=== PATIENT | male | born 1950 | race Caucasian/White ===

== ENCOUNTER → 2018-07-11 | Outpatient (CLI) | payer MEDICARE, MEDICAID ==
[2018-07-11 07:20] LABS: HCT 49.8 % (39.0-53.0); MCH 31.5 pg (25.0-35.0); MCHC 32.1 g/dL (31.0-37.0); MCV 98.4 fL (80.0-100.0); Platelet Count 204 k/uL (150-450); RBC 5.06 m/uL (4.30-5.90); RDW 13.3 % (11.5-15.5); WBC 5.9 k/uL (3.8-10.6)
[2018-07-11 07:21] LABS: Appearance,Urine Clear (Clear); Bilirubin,Urine Negative (Negative); Blood,Urine Negative (Negative); Color,Urine Yellow; Glucose,Urine (UA) Negative (Negative); Ketones,Urine Negative (Negative); Leukocyte Esterase,Urine Small (Negative); Mucus,Urine Few /hpf; Nitrite,Urine Negative (Negative); PH, Urine 5.5 (5.0-8.0); Protein,Urine Negative (Negative); RBC,Urine 1 /hpf (0-5); Specific Gravity,Urine 1.016 (1.001-1.035); Urobilinogen,Urine <2.0 mg/dL (<2.0); WBC,Urine 5 /hpf (0-5)
[2018-07-11 12:26] LABS: Albumin 4.6 g/dL (3.80-4.90); Albumin/Globulin Ratio 2.19 (1.20-2.10); Anion Gap 6.9 mmol/L (4.00-12.00); Calcium 9.7 mg/dL (8.7-10.3); Carbon Dioxide 28.1 mmol/L (21.6-31.8); Globulin 2.1 g/dL (2.1-3.7); Potassium 5.1 mmol/L (3.5-5.5); Total Bilirubin 0.8 mg/dL (0.3-1.2); Total Protein 6.7 g/dL (6.2-8.2)
== END | disposition home or self-care (01) ==
LOC: LABWHC1 06:40
PROVIDERS: ATTEND Family Medicine
DX: Z00.00 Encounter for general adult medical examination without abnormal findings (principal)
CPT/HCPCS: 36415; 80053; 80061; 81001; 84153; 85027

== ENCOUNTER → 2018-08-11 | Outpatient (CLI) | payer MEDICAID, MEDICARE | LOC: LABWHC1 07:04 | PROVIDERS: ATTEND Family Medicine | DX: R97.20 Elevated prostate specific antigen [PSA] (principal) | CPT/HCPCS: 36415; 84153; 84154 ==

== ENCOUNTER → 2018-09-22 | Outpatient (CLI) | payer MEDICAID, MEDICARE ==
[2018-09-22 10:56] LABS: Basophils # (A) 0.1 k/uL (0-0.2); Basophils % (A) 1 %; Eosinophils % (A) 1 %; HCT 46.6 % (39.0-53.0); HGB 15.3 gm/dL (13.0-17.5); Lymphocytes % (A) 38 %; MCH 31.9 pg (25.0-35.0); MCHC 32.8 g/dL (31.0-37.0); Mean Platelet Volume 6.7; Monocytes # (A) 0.4 k/uL (0-1.0); Monocytes % (A) 7 %; Neutrophils # (A) 2.6 k/uL (1.3-7.7); Neutrophils % (A) 50 %; Platelet Count 197 k/uL (150-450); RDW 13.1 % (11.5-15.5); WBC 5.2 k/uL (3.8-10.6)
[2018-09-22 11:56] LABS: ALT 32 U/L (21-72); AST 28 U/L (17-59); Albumin 3.9 g/dL (3.5-5.0); Albumin/Globulin Ratio 1.2; Alkaline Phosphatase 75 U/L (38-126); Anion Gap 8 mmol/L; Blood Urea Nitrogen 15 mg/dL (9-20); Calcium 9.2 mg/dL (8.4-10.2); Carbon Dioxide 30 mmol/L (22-30); Chloride 105 mmol/L (98-107); Globulin 3.2 g/dL; Glucose 81 mg/dL (74-99); Potassium 4.3 mmol/L (3.5-5.1); Sodium 143 mmol/L (137-145); Total Bilirubin 0.5 mg/dL (0.2-1.3); Total Protein 7.1 g/dL (6.3-8.2)
== END | disposition home or self-care (01) ==
LOC: LABWHC1 10:13
PROVIDERS: ATTEND Physician Assistant
DX: R53.83 Other fatigue (principal); R19.7 Diarrhea, unspecified
CPT/HCPCS: 36415; 80053; 85025

== ENCOUNTER → 2018-11-18 | Outpatient (CLI) | payer MEDICAID, MEDICARE | LOC: LABWHC1 07:22 | PROVIDERS: ATTEND Urology | DX: R97.20 Elevated prostate specific antigen [PSA] (principal) | CPT/HCPCS: 36415; 84153 ==

== ENCOUNTER → 2018-12-30 | Outpatient (CLI) | payer MEDICAID, MEDICARE | END | disposition home or self-care (01) | LOC: LABWHC1 09:10 | PROVIDERS: ATTEND Urology | DX: R97.20 Elevated prostate specific antigen [PSA] (principal) | CPT/HCPCS: 36415; 84153 ==

== ENCOUNTER → 2019-07-15 | Outpatient (CLI) | payer MEDICAID, MEDICARE ==
[2019-07-15 07:36] LABS: HCT 45.8 % (39.0-53.0); HGB 15.5 gm/dL (13.0-17.5); MCH 33.2 pg (25.0-35.0); MCHC 33.9 g/dL (31.0-37.0); MCV 97.9 fL (80.0-100.0); Mean Platelet Volume 7.3; Platelet Count 230 k/uL (150-450); RBC 4.68 m/uL (4.30-5.90); RDW 12.5 % (11.5-15.5); WBC 5.1 k/uL (3.8-10.6)
[2019-07-15 13:18] LABS: African American GFR (CKD) 79.5 (60.0-200.0); Albumin 4.4 g/dL (3.80-4.90); Albumin/Globulin Ratio 2.2 (1.60-3.17); Anion Gap 6.6 mmol/L (4.00-12.00); BUN/Creat Ratio 17.27 Ratio (12.00-20.00); Calcium 9.2 mg/dL (8.7-10.3); Carbon Dioxide 29.4 mmol/L (21.6-31.8); Chol/HDL Ratio 2.67; LDL Cholesterol,Calculated 94.2 mg/dL (0.0-131.0); Non-African American GFR(CKD) 68.6 (60.0-200.0); Total Bilirubin 0.5 mg/dL (0.3-1.2); Total Protein 6.4 g/dL (6.2-8.2); VLDL Calculation 10.8 mg/dL (5.00-40.00)
== END | disposition home or self-care (01) ==
LOC: LABWHC1 06:36
PROVIDERS: ATTEND Family Medicine
DX: Z00.00 Encounter for general adult medical examination without abnormal findings (principal)
CPT/HCPCS: 36415; 80053; 80061; 84153; 85027

== ENCOUNTER → 2019-10-13 | Outpatient (CLI) | payer MEDICARE ==
--- NOTE | 2019-10-13 15:08 | NM ---
EXAMINATION TYPE: NM bone scan whole body DATE OF EXAM: 10/13/2019 COMPARISON: Plain film 07/27/2019 HISTORY: Prostate cancer Delayed whole-body scanning was performed following the injection of 20.3 mCi Tc 99m MDP. Images acq uired 3 hours post injection. 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 There is uptake seen within the lumbar spine which is likely due to degenerative disc change. Uptake within the shoulders and sternoclavicular joints, left knee, elbows felt likely to be degenerative. S oft tissue uptake is normal. There is uptake present within the right hip at the level of the acetabulum as well as foci of uptake at the level of the sacral ala or near the lumbosacral junction bilaterally. IMPRESSION: Predominant findings thought likely to be degenerative however some indeterminate uptake present with in the pelvis is noted. Consider pelvic MRI for additional evaluation.
== END | disposition home or self-care (01) ==
LOC: RADNMMAIN 09:48
PROVIDERS: ATTEND Urology
DX: C61 Malignant neoplasm of prostate (principal)
CPT/HCPCS: 78306; A9503

== ENCOUNTER → 2019-10-20 | Outpatient (CLI) | payer MEDICARE ==
--- NOTE | 2019-10-21 08:50 | MR ---
EXAMINATION TYPE: MR Prostate wo/w con DATE OF EXAM: 10/20/2019 COMPARISON: None. IMAGE QUALITY: Suboptimal but repeat not required. INDICATION: Prostate ca, PSA 7.0 on 09-02-19 PSA: 7.0 ng/ml on September 02, 2019 and 6.9 on August 11, 2018. Recent Biopsy and Date: Pathology Report (If Applicable): Left base adenocarcinoma recent score 3+3 = 6, 5% tumor, 1 mm size. Left apex adenocarcinoma [place] score 3+4 = 7, 10%, tumor size 1.9 mm. TECHNIQUE: Examination was performed using a 3T MRI without an endorectal coil. Multiparametric imaging was perf ormed with T2 mutliplanar sequences, axial diffusion weighted imaging and dynamic contrast enhanced i maging, utilizing 7.5 mL intravenous Gadavist gadolinium contrast. FINDINGS: There is distortion especially on the higher B value diffusion weighted images and ADC madelin ing provided. There is no clinically significant cancer identified. PROSTATE VOLUME: 4.4 cm SI x 3.7 cm AP x 5.0 cm LR Vol= 42.6 cc PSA DENSITY: 5.112 ng/ml/cc Site 1: Assessment Category:2 Roughly 10 x 5 mm curvilinear area of indistinct hypointensity on ADC mapping image 164 for reference without increased signal on diffusion-weighted images. Location(s):left apex ; Central transitional zone is heterogeneous without suspicious areas of hypointensity on T2-weighted i mages. Prostatic capsule is preserved. Seminal vesicles are poorly seen. Enlarged lobulated prostate bulges on bladder base. No adjacent adenopathy noted. Bladder shows mild to moderate trabeculation and mild wall thickening in poorly distended bladder. No concerning pelvic fluid collection. No groin hernia or adenopathy. Visualized bowel loops are unre markable. Heterogeneity of bone marrow signal intensity. IMPRESSION: A focus of clinically significant cancer is not identified. Highest Assessment Category: 2 MRI Stage: T1c N0 M0 based on review of pelvic images. False negative rates for MRI range from 5-20% depending on risk profile. Assessment Categories: 1 ? Very low (clinically significant cancer is highly unlikely to be present) 2 ? Low (clinically significant cancer is unlikely to be present) 3 ? Intermediate (the presence of clinically significant cancer is equivocal) 4 ? High (clinically significant cancer is likely to be present) 5 ? Very high (clinically significant cancer is highly likely to be present)
== END | disposition home or self-care (01) ==
LOC: RADMRIMAIN 11:20
PROVIDERS: ATTEND Urology
DX: C61 Malignant neoplasm of prostate (principal)
CPT/HCPCS: 72197; A9585

== ENCOUNTER → 2019-10-26 | Outpatient (CLI) | payer MEDICARE ==
[2019-10-26 08:28] LABS: Basophils % (A) 1 %; Eosinophils # (A) 0.2 k/uL (0-0.7); Eosinophils % (A) 4 %; HCT 46.2 % (39.0-53.0); HGB 15.2 gm/dL (13.0-17.5); Lymphocytes # (A) 2.4 k/uL (1.0-4.8); Lymphocytes % (A) 42 %; MCH 32.3 pg (25.0-35.0); MCHC 32.9 g/dL (31.0-37.0); MCV 98.4 fL (80.0-100.0); Mean Platelet Volume 7.3; Monocytes # (A) 0.3 k/uL (0-1.0); Monocytes % (A) 6 %; Neutrophils # (A) 2.6 k/uL (1.3-7.7); Neutrophils % (A) 45 %; Platelet Count 192 k/uL (150-450); RDW 12.7 % (11.5-15.5); WBC 5.7 k/uL (3.8-10.6)
[2019-10-26 08:29] LABS: Appearance,Urine Clear (Clear); Bilirubin,Urine Negative (Negative); Blood,Urine Negative (Negative); Color,Urine Yellow; Glucose,Urine (UA) Negative (Negative); Ketones,Urine Negative (Negative); Leukocyte Esterase,Urine Negative (Negative); Nitrite,Urine Negative (Negative); PH, Urine 7.5 (5.0-8.0); Protein,Urine Trace (Negative); Specific Gravity,Urine 1.022 (1.001-1.035); Urobilinogen,Urine <2.0 mg/dL (<2.0)
[2019-10-26 08:37] LABS: Calcium 9.2 mg/dL (8.4-10.2); Potassium 5.2 mmol/L (3.5-5.1)
== END | disposition home or self-care (01) ==
LOC: LABPAT 08:10
PROVIDERS: ATTEND Urology
DX: Z01.818 Encounter for other preprocedural examination (principal); C61 Malignant neoplasm of prostate; I10 Essential (primary) hypertension
CPT/HCPCS: 36415; 80048; 81003; 85025; 93005

== ENCOUNTER 2019-11-04 08:49 | Day surgery (SDC) | payer MEDICARE ==
[2019-11-02 11:04] VITALS: BMI 23.0
[~2019-11-04 08:49] MED LIST: HYDROmorphone 0.5 MG/0.5 ML SYRINGE IVP PRN
[2019-11-04] MEDS: LACTATED RINGERS 1,000 ML IV SCH (09:20)
[2019-11-04] MEDS ORDERED: MIDAZOLAM 2 MG/2 ML VIAL IVP ONE (09:25)
[2019-11-04] MEDS ORDERED: DEXAMETHASONE SOD PHOSPHATE 10 MG/ML 1 ML VIAL IV ONE (09:25)
[2019-11-04] MEDS ORDERED: LIDOCAINE 1% (10MG/ML) FOR IV START INTRADERMA ONE ×2 (09:25)
[2019-11-04] MEDS ORDERED: ONDANSETRON 4 MG/2 ML VIAL IVP ONE (09:25)
[2019-11-04] MEDS ORDERED: MIDAZOLAM 2 MG/2 ML VIAL ONE (10:27)
[2019-11-04] MEDS ORDERED: GLYCOPYRROLATE 0.2 MG/ML 2 ML VIAL ONE (10:27)
[2019-11-04] MEDS ORDERED: PROPOFOL 10 MG/ML 20 ML VIAL IV ONE (10:27)
[2019-11-04] MEDS ORDERED: LIDOCAINE 1% INJ 10MG/ML (20 ML MDV) ONE (10:27)
[2019-11-04] MEDS ORDERED: ONDANSETRON 4 MG/2 ML VIAL ONE (10:27)
[2019-11-04] MEDS ORDERED: fentaNYL (PF) 50 MCG/ML 2 ML AMP ONE (10:27)
[2019-11-04] MEDS ORDERED: NEOSTIGMINE 1 MG/ML 10 ML VIAL ONE (10:27)
[2019-11-04] MEDS ORDERED: PHENYLEPHRINE-0.9% NACL SYG 1 MG/10 ML SYRINGE ONE (10:27)
[2019-11-04] MEDS ORDERED: ROCURONIUM BROMIDE 10 MG/ML 5 ML VIAL IV ONE (10:27)
[2019-11-04] MEDS ORDERED: BUPIVACAINE (PF) 0.25% 30 ML VIAL SQ ONE ×2 (11:09)
[2019-11-04] MEDS ORDERED: LACTATED RINGERS 1,000 ML IV ONE ×2 (13:19)
[2019-11-04] MEDS: MEPERIDINE 50 MG/ML SYRINGE IVP ONE ×2 (13:28→13:34)
--- NOTE | 2019-11-04 13:32 | P.OP ---
Date of Procedure: 11/04/19 Preoperative Diagnosis: Prostate cancer Postoperative Diagnosis: Prostate cancer Procedure(s) Performed: #1 robotic radical prostatectomy #2 robotic extended bilateral pelvic lymphadenectomy Anesthesia: MABELA Surgeon: Berto Eastman Estimated Blood Loss (ml): 50 IV fluids (ml): 900 Urine output (ml): 150 Pathology: other (Prostate with seminal vesicles. Right and left pelvic lymph nodes) Condition: stable Disposition: PACU Indications for Procedure: Intermediate risk prostate cancer Operative Findings: Median lobe Asymmetric lateral lobes Tortuous bilateral external iliac arteries Description of Procedure: .This is a patient with a history of prostate cancer. The procedure of robot assisted laparoscopic radical prostatectomy was discussed with the patient including the potential risks and complications of the procedure. He elected to proceed with the operation. A nodule was not detected on digital exam under anesthesia. The patient was placed in a supine, Trendelenberg position with adequate padding of the pressure points, shoulders, back, legs and arms. He was then prepped and draped in the standard fashion. A 18F palma catheter was placed to gravity drainage. A Veress needle was placed through a cande-umbilical puncture and a pneumo-peritoneum created to 20mmHg during port placement which is thereafter lowered to 15mmHg.A 8 mm port above the umbilicus was placed for the scope. Next,under vision a 8mm robotic ports was placed lateral to each rectus slightly below the camera port. The right assistant manager retail right iliac fossa 12mm port and right paramedian 5mm port were placed followed by the left iliac fossa 5mm port. The robot was then docked to the 8mm robotic ports and then each robotic arm and tower was checked in relation to the patient's legs and hands to avoid inadvertent compression. The peritoneal cavity was inspected and then an inverted U-shaped incision began laterally to the left medial umbilical ligament and extended high across the midline to the right umbilical ligament. The limbs of the "U" extended to the level of the vasa on both sides. We next developed the preperitoneal space and the space of Retzius. The endopelvic fascia was incised and the levator muscle was swept off the lateral lobes of the prostate. Attention was then directed to the extended bilateral pelvic lymph node dissection. The dissection was started on the right side. The assistant manager retail retracted the external iliac vein laterally and all the fibrofatty tissue including lymph nodes between the external iliac vein superiorly the obturator nerve medially and the pelvic bone laterally was dissected out. Careful hemostasis was performed. The same procedure was then done on the left side and the left lymph node packet was marked with a clip. Cautery was used to dissected the bladder away from the prostate. After the anterior bladder neck was incised and the bladder entered the the posterior bladder neck was exposed and the ureteral orifices identified. The posterior bladder neck was then incised and dissected away from the prostate. The bladder neck was noted to be normal and did not require reconstruction. The vas and the seminal vesicles were now exposed and dissected to their insertions into the prostate and were not spared. The posterior layer of the Denonvillier's fascia was incised to enter into the plane between prostate and perirectal fat. Each lateral pedicle was controlled with clips and cautery for hemostasis. Nerve preservation was performed as listed above. The puboprostatic ligament was incised where it inserted into the apex of the prostate and a plane between urethra and dorsal venous complex developed to expose the anterior urethral surface. The anterior wall of the urethra was transected with the scissors a few millimeters distal to the apex of the prostate. DV suture was placed using 3-0 v loc. The freed specimen was then inspected and placed in an endo-catch specimen retrieval bag. The prostate was removed following the completion of the anastomosis.Two 3-0 V-Lock stitches (MVAC) tied together to form a pledget were used to complete the running continuous circumferential urethrovesical anas tamosis with dual layer reconstruction. The outer layer V-Lock suture was placed initially to reapproximate Denonvillier's fascia posteriorly before placing the inner layer MVAC suture as the urethrovesical anastamosis proper. After the inner layer was tied, the anastamosis was checked for leaks before closing the outer layer anteriorly. A new 20 [place] catheter was introduced and inflated to 20cc. The bladder was filled with 250 cc saline, with the balloon to test the integrity of the anastomosis.No leak was identified.The specimen was removed after enlarging the umbilical port incision as required. The umbilical fascia was closed with PDS suture and closed in layers. All ports were closed with a subcuticular stitch. Sponge, instrument, and needle counts were correct at the end of the case. The patient tolerated the procedure well and was accompanied to the recovery room in stable condition
[2019-11-04] MEDS: MIDAZOLAM 2 MG/2 ML VIAL IVP ONE ×4 (13:54→14:31)
[2019-11-04] MEDS: fentaNYL (PF) 50 MCG/ML 2 ML AMP IVP ONE ×3 (14:03→14:30)
[2019-11-04] MEDS ORDERED: ONDANSETRON 4 MG/2 ML VIAL IVP PRN (14:21)
[2019-11-04] MEDS ORDERED: MAG HYDROX/AL HYDROX/SIMETH 30 ML CUP PO PRN (14:21)
[2019-11-04] MEDS ORDERED: ACETAMINOPHEN TAB 325 MG TAB PO PRN (14:21)
[2019-11-04] MEDS ORDERED: HYDROmorphone 1 MG/ML 1 ML SYRINGE IVP PRN (14:21)
[2019-11-04] MEDS: DEXTROSE 5%-0.45% NACL 1,000 ML IV SCH ×2 (16:43→16:53)
[2019-11-04] MEDS: KETOROLAC 30 MG/ML 1 ML VIAL IVP PRN (16:54)
[2019-11-05] MEDS: KETOROLAC 30 MG/ML 1 ML VIAL IVP PRN (03:00)
[2019-11-05] MEDS: LACTATED RINGERS 1,000 ML IV SCH (03:08)
[2019-11-05] MEDS: DEXTROSE 5%-0.45% NACL 1,000 ML IV SCH (06:23)
--- NOTE | 2019-11-05 07:55 | P.DS ---
Providers Attending physician: Berto Eastman Primary care physician: [facility] Course: The patient is 69. He has prostate cancer. evaluated the patient and set him up for a robotic-assisted radical prostatectomy which was done yesterday [id number]. He did well overnight. His pain is under control. His urine is clear. His abdomen is soft. His wound looks good. His awake alert and comfortable. He'll be discharged home today. He'll go home with the Nix. He'll be seen in the office a week from Saturday for catheter removal. Postoperative instructions have been given. He will use Tylenol for pain. If he has problems he's been instructed to contact me. The patient understands and consents. Patient Condition at Discharge: Good Plan - Discharge Summary Discharge Rx Participant: Yes New Discharge Prescriptions: No Action Perindopril Erbumine [Aceon] 4 mg PO DAILY Discharge Medication List Perindopril Erbumine [Aceon] 4 mg PO DAILY 11/02/19 [History] Follow up Appointment(s)/Referral(s): Hossein Neville MD [STAFF PHYSICIAN] - 11/16/19 Discharge Disposition: HOME SELF-CARE
[2019-11-05] MEDS ORDERED: LISINOPRIL 10 MG TAB PO SCH (09:00)
[2019-11-05 11:52] VITALS: BP 159/83; PULSE 53; RESP 17; TEMP 98.6
== END 2019-11-05 14:00 | disposition home or self-care (01) ==
LOC: OR 08:49 → 5NMEDONC 13:32 → OR 11-05 14:00
PROVIDERS: ATTEND Urology
DX: C61 Malignant neoplasm of prostate (principal); I10 Essential (primary) hypertension; Z79.899 Other long term (current) drug therapy; Z88.8 Allergy status to other drugs, medicaments and biological substances; Z98.890 Other specified postprocedural states
CPT/HCPCS: 86900; 86901; 86850; 88307; 88309; 55866; 38571; C1762; J2250; J1100; J2710; J2175; J0690 ×2; J2405; J2001; J3010; J1885 ×2; J2370; J2704

== ENCOUNTER → 2020-01-11 | Outpatient (CLI) | payer MEDICARE | END | disposition home or self-care (01) | LOC: LABWHC1 07:02 | PROVIDERS: ATTEND Urology | DX: C61 Malignant neoplasm of prostate (principal) | CPT/HCPCS: 36415; 84153 ==

== ENCOUNTER → 2020-04-26 | Outpatient (CLI) | payer MEDICARE | END | disposition home or self-care (01) | LOC: LABWHC1 07:31 | PROVIDERS: ATTEND Urology | DX: C61 Malignant neoplasm of prostate (principal) | CPT/HCPCS: 36415; 84153 ==

== ENCOUNTER → 2020-07-18 | Outpatient (CLI) | payer MEDICARE | END | disposition home or self-care (01) | LOC: LABWHC1 07:16 | PROVIDERS: ATTEND Urology | DX: C61 Malignant neoplasm of prostate (principal) | CPT/HCPCS: 36415; 84153 ==

== ENCOUNTER → 2020-10-28 | Outpatient (CLI) | payer MEDICARE | END | disposition home or self-care (01) | LOC: LABWHC1 07:06 | PROVIDERS: ATTEND Urology | DX: C61 Malignant neoplasm of prostate (principal) | CPT/HCPCS: 36415; 84153 ==

== ENCOUNTER → 2021-01-16 | Outpatient (CLI) | payer MEDICARE ==
[2021-01-16 11:19] LABS: HCT 44.5 % (39.6-50.0); HGB 14.6 g/dL (13.0-17.0); MCH 32.3 pg (27.0-32.0); MCHC 32.8 g/dL (32.0-37.0); MCV 98.5 fL (80.0-97.0); Mean Platelet Volume 10.2 fL (9.5-12.2); Platelet Count 226 X 10*3/uL (140-440); RBC 4.52 X 10*6/uL (4.40-5.60); RDW 13.8 % (11.5-14.5); WBC 5.38 X 10*3/uL (4.50-10.00)
[2021-01-16 11:54] LABS: Albumin 4.2 g/dL (3.80-4.90); Albumin/Globulin Ratio 1.83 (1.60-3.17); Anion Gap 4.9 mmol/L (4.00-12.00); BUN/Creat Ratio 14.55 Ratio (12.00-20.00); Carbon Dioxide 28.1 mmol/L (21.6-31.8); Chol/HDL Ratio 2.98; Globulin 2.3 g/dL (1.6-3.3); Non-African American GFR(CKD) 68.1 (60.0-200.0); Total Bilirubin 0.6 mg/dL (0.3-1.2); Total Protein 6.5 g/dL (6.2-8.2)
== END | disposition home or self-care (01) ==
LOC: LABWHC1 07:21
PROVIDERS: ATTEND Family Medicine
DX: Z00.01 Encounter for general adult medical examination with abnormal findings (principal); N40.1 Benign prostatic hyperplasia with lower urinary tract symptoms; R53.83 Other fatigue; E66.3 Overweight
CPT/HCPCS: 36415; 80053; 80061; 85027

== ENCOUNTER → 2021-05-31 | Outpatient (CLI) | payer MEDICARE | END | disposition home or self-care (01) | LOC: LABWHC1 09:12 | PROVIDERS: ATTEND Urology | DX: C61 Malignant neoplasm of prostate (principal) | CPT/HCPCS: 36415; 84153 ==

== ENCOUNTER → 2021-07-07 | Outpatient (CLI) | payer MEDICARE ==
[2021-07-07 11:00] LABS: HCT 46.3 % (39.6-50.0); HGB 15.2 g/dL (13.0-17.0); MCH 32.1 pg (27.0-32.0); MCHC 32.8 g/dL (32.0-37.0); MCV 97.9 fL (80.0-97.0); Mean Platelet Volume 10.4 fL (9.5-12.2); Platelet Count 215 X 10*3/uL (140-440); RBC 4.73 X 10*6/uL (4.40-5.60); RDW 13.3 % (11.5-14.5); WBC 6.11 X 10*3/uL (4.50-10.00)
[2021-07-07 11:27] LABS: ALT 23 U/L (10-49); AST 29 U/L (14-35); African American GFR (CKD) 78.4 (60.0-200.0); Albumin 4.3 g/dL (3.8-4.9); Albumin/Globulin Ratio 1.87 (1.60-3.17); Alkaline Phosphatase 81 U/L (41-126); BUN/Creat Ratio 16.27 Ratio (12.00-20.00); Blood Urea Nitrogen 17.9 mg/dL (9.0-27.0); Calcium 9.2 mg/dL (8.7-10.3); Carbon Dioxide 23.3 mmol/L (20.0-27.5); Chloride 102 mmol/L (96-109); Chol/HDL Ratio 3.16 Ratio; Globulin 2.3 g/dL (1.6-3.3); Glucose 103 mg/dL (70-110); LDL Cholesterol,Calculated 105.9 mg/dL (0.0-131.0); Non-African American GFR(CKD) 67.7 (60.0-200.0); Potassium 4.7 mmol/L (3.5-5.5); Sodium 137 mmol/L (135-145); Total Protein 6.6 g/dL (6.2-8.2); VLDL Calculation 15.84 mg/dL (5.00-40.00)
== END | disposition home or self-care (01) ==
LOC: LABWHC1 07:09
PROVIDERS: ATTEND Family Medicine
DX: Z00.01 Encounter for general adult medical examination with abnormal findings (principal); R53.83 Other fatigue; E66.3 Overweight; N40.1 Benign prostatic hyperplasia with lower urinary tract symptoms
CPT/HCPCS: 36415; 80053; 80061; 85027

== ENCOUNTER → 2022-01-04 | Outpatient (CLI) | payer MEDICARE | END | disposition home or self-care (01) | LOC: LABWHC1 07:50 | PROVIDERS: ATTEND Urology | DX: C61 Malignant neoplasm of prostate (principal) | CPT/HCPCS: 36415; 84153 ==

== ENCOUNTER → 2023-01-17 | Outpatient (CLI) | payer MEDICARE ==
[2023-01-17 11:03] LABS: HCT 43.8 % (39.6-50.0); HGB 14.5 d/dL (12.0-15.0); MCH 32.2 pg (27.0-32.0); MCHC 33.1 d/dL (32.0-37.0); MCV 97.1 FL (80.0-97.0); Mean Platelet Volume 10.7 FL (9.5-12.2); NRBC Per 100 WBC 0 X 10*3/uL (0.00-0.01); Platelet Count 231 X 10*3/uL (140-440); RBC 4.51 X 10*6/uL (4.40-5.60); RDW 13.6 % (11.5-14.5); WBC 6.66 X 10*3/uL (4.50-10.00)
[2023-01-17 14:51] LABS: Chol/HDL Ratio 2.56 Ratio; LDL Cholesterol,Calculated 87.5 mg/dL (0.0-131.0); VLDL Calculation 9.48 mg/dL (5.00-40.00)
[2023-01-17 16:41] LABS: Prostate Specific Antigen <0.14 ng/mL (0.00-6.50)
== END | disposition home or self-care (01) ==
LOC: LABWHC1 07:15
PROVIDERS: ATTEND Family Medicine
DX: Z00.01 Encounter for general adult medical examination with abnormal findings (principal); E66.3 Overweight; N40.1 Benign prostatic hyperplasia with lower urinary tract symptoms; R53.83 Other fatigue
CPT/HCPCS: 36415; 80061; 84153; 85027

== ENCOUNTER → 2023-02-28 | Outpatient (CLI) | payer MEDICARE | END | disposition home or self-care (01) | LOC: LABWHC1 06:48 | PROVIDERS: ATTEND Urology | DX: C61 Malignant neoplasm of prostate (principal) | CPT/HCPCS: 36415; 84153 ==

== ENCOUNTER → 2024-07-17 | Outpatient (CLI) | payer MEDICARE ==
[2024-07-17 10:57] LABS: HCT 43.9 % (39.6-50.0); HGB 14.7 g/dL (13.0-17.0); MCH 32.7 pg (27.0-32.0); MCHC 33.5 g/dL (32.0-37.0); MCV 97.6 FL (80.0-97.0); Mean Platelet Volume 10.2 FL (9.5-12.2); NRBC Per 100 WBC 0 X 10*3/uL (0.00-0.01); Platelet Count 233 X 10*3/uL (140-440); RDW 13.6 % (11.5-14.5); WBC 6.79 X 10*3/uL (4.50-10.00)
[2024-07-17 11:24] LABS: ALT 20 U/L (10-49); AST 30 U/L (14-35); Albumin 4.3 g/dL (3.8-4.9); Albumin/Globulin Ratio 1.87 Ratio (1.60-3.17); Alkaline Phosphatase 87 U/L (41-126); BUN/Creat Ratio 15.55 Ratio (12.00-20.00); Blood Urea Nitrogen 17.1 mg/dL (9.0-27.0); Calcium 9.2 mg/dL (8.7-10.3); Carbon Dioxide 24.9 mmol/L (21.6-31.8); Chloride 103 mmol/L (96-109); Globulin 2.3 g/dL (1.6-3.3); Glucose 99 mg/dL (70-110); LDL Cholesterol,Calculated 98.3 mg/dL (0.0-131.0); Potassium 4.8 mmol/L (3.5-5.5); Sodium 139 mmol/L (135-145); Total Bilirubin 0.5 mg/dL (0.3-1.2); Total Protein 6.6 g/dL (6.2-8.2); VLDL Calculation 9.02 mg/dL (5.00-40.00)
[2024-07-17 12:50] LABS: Prostate Specific Antigen <0.01 ng/mL (0.000-6.500)
== END | disposition home or self-care (01) ==
LOC: LABWHC1 06:55
PROVIDERS: ATTEND Family Medicine
DX: Z00.01 Encounter for general adult medical examination with abnormal findings (principal); E66.3 Overweight; N40.1 Benign prostatic hyperplasia with lower urinary tract symptoms; R53.83 Other fatigue
CPT/HCPCS: 36415; 80053; 80061; 84153; 85027